=== PATIENT | male | born 1950 | race Caucasian/White ===

== ENCOUNTER 2022-09-08 10:31 | Emergency (ER) | payer MEDICARE ==
[~2022-09-08] VITALS: Ht 172.7 cm; Wt 127.3 kg
[2022-09-08] MEDS ORDERED: VALS40TA4 PO (10:41)
[2022-09-08] MEDS ORDERED: CARV12 PO (10:41)
[2022-09-08] MEDS ORDERED: METF-1211 PO (10:41)
[2022-09-08] MEDS ORDERED: ASPI-1450 PO (10:41)
[2022-09-08] MEDS ORDERED: METF-81 PO (12:43)
[2022-09-08] MEDS ORDERED: TAMS-13 PO (12:43)
[2022-09-08] MEDS ORDERED: VALS160T31 PO (12:43)
[2022-09-08] MEDS ORDERED: LEVO100 PO (12:43)
[2022-09-08 13:01] LABS: BASOPHILS % (AUTO) 1.1 % (0.0-2.0); EOSINOPHILS % (AUTO) 3.3 % (1.0-6.0); HEMATOCRIT 49.3 % (41-53); HEMOGLOBIN 16.6 g/dL (13.5-17.5); LYMPHOCYTES # (AUTO) 0.9 K/uL (1.0-4.8); LYMPHOCYTES % (AUTO) 20.7 % (22.0-44.0); MEAN CORPUSCULAR HGB CONC 33.6 G/dL (31.0-37.0); MEAN CORPUSCULAR VOLUME 89 fL (80-100); MONOCYTES # (AUTO) 0.5 K/uL (0.1-1.0); MONOCYTES % (AUTO) 10.2 % (2.0-9.0); NEUTROPHILS % (AUTO) 64.7 % (40.0-70.0); PLATELET COUNT (AUTO) 187 K/uL (150-450); RED BLOOD CELL COUNT(AUTO) 5.53 MIL/uL (4.50-5.90); RED CELL DISTRIBUTION WIDTH 13.6 % (11.5-14.5)
[2022-09-08 13:09] LABS: ANION GAP 8 mmol/L (8-16); CALCIUM, TOTAL 9.4 mg/dL (8.8-10.5); CARBON DIOXIDE 28 mmol/L (22-29); CHLORIDE 99 mmol/L (98-107); CREATININE 0.95 mg/dL (0.60-1.30); GLOMERULAR FILTR. RATE CALC > 60 mL/min (>60); GLUCOSE,RANDOM 222 mg/dL (70-110); POTASSIUM 3.7 mmol/L (3.5-5.1); SODIUM SERUM 135 mmol/L (136-145); UREA NITROGEN, BLOOD 11 mg/dL (7-18)
[2022-09-08 13:13] LABS: INR 1.1 (0.9-1.1); PROTHROMBIN TIME 11.2 SEC (9.4-11.6)
[2022-09-08 13:14] LABS: ALANINE AMINOTRANSFERASE 51 U/L (12-78); ALBUMIN 3.9 g/dL (3.4-5.0); ALKALINE PHOSPHATASE 83 U/L (46-116); ASPARTATE AMINOTRANSFERASE 26 U/L (15-37); BILIRUBIN,TOTAL 0.8 mg/dL (0.1-1.0); TOTAL PROTEIN, SERUM 7.2 g/dL (6.4-8.2)
[2022-09-08] MEDS ORDERED: SODIUM CHLORIDE 0.9% 100 ML ONE (13:27)
[2022-09-08] MEDS ORDERED: IOHEXOL 350 MG/ML 100 ML VIAL ONE (13:27)
[2022-09-08] MEDS ORDERED: INSULIN LISPRO 100 UNITS/ML SQ PRN (14:00)
[2022-09-08] MEDS ORDERED: ONDANSETRON HCL 4 MG/2 ML VIAL IVP PRN (14:00)
[2022-09-08] MEDS ORDERED: DEXTROSE 50%-WATER 25 GM/50 ML SYRINGE IVP PRN (14:00)
[2022-09-08] MEDS ORDERED: ACETAMINOPHEN 325 MG TABLET PO PRN (14:00)
[2022-09-08] MEDS ORDERED: APIXABAN 5 MG TABLET PO SCH (14:00)
[2022-09-08 15:03] LABS: THYROID STIMULATING HORMONE 1.12 uIU/mL (0.36-3.74)
[2022-09-08] MEDS ORDERED: MetFORMIN HCL 500 MG TABLET PO SCH (17:30)
[2022-09-08 18:01] VITALS: BP 141/89
[2022-09-08] MEDS ORDERED: DOCUSATE SODIUM 100 MG CAPSULE PO SCH (21:00)
[2022-09-08] MEDS ORDERED: ATORVASTATIN CALCIUM 20 MG TABLET PO SCH (21:00)
[2022-09-08] MEDS ORDERED: CARVEDILOL 12.5 MG TABLET PO SCH (21:00)
[2022-09-09] MEDS ORDERED: FAMOTIDINE 20 MG TABLET PO SCH (09:00)
[2022-09-09] MEDS ORDERED: APIXABAN 5 MG TABLET PO SCH (09:00)
== END 2022-09-08 18:03 | disposition home or self-care (01) ==
LOC: EMS 10:32
DX: R42 Dizziness and giddiness (principal); E11.9 Type 2 diabetes mellitus without complications; I10 Essential (primary) hypertension; I48.91 Unspecified atrial fibrillation; E03.9 Hypothyroidism, unspecified; Z98.890 Other specified postprocedural states; Z86.79 Personal history of other diseases of the circulatory system
CPT/HCPCS: 99285; 93306; 70450; 70551; 71045; 92610; 80053; 84443; 84484; 85025; 85610; 85730; 86850; 86900; 86901; 36415; 70496; 70498; 82948; 93005; Q9967; J7050